=== PATIENT | female | born 1945 | race American Indian/Alaskan Native ===

== ENCOUNTER 2016-09-01 06:47 | Day surgery (SDC) | payer MEDICARE ==
[2016-09-01 08:05] LABS: Eosinophils % (Auto) 4.2 % (0.0-4.3); Hematocrit 35.9 % (30.3-42.9); Hemoglobin 12.3 gm/dl (10.1-14.3); Mean Corpuscular HGB Conc 34 % (30-34); Mean Corpuscular Hemoglobin 33 pg (28-32); Mean Corpuscular Volume 95 fl (79-97); Platelet Count 302 K/mm3 (140-440); Red Blood Count 3.76 M/mm3 (3.65-5.03); Red Cell Distribution Width 14.8 % (13.2-15.2)
[2016-09-01 08:17] LABS: INR 1.28 (0.87-1.13)
[2016-09-01] MEDS ORDERED: VERSED IV ONE ×2 (08:31→08:34)
[2016-09-01] MEDS ORDERED: SUBLIMAZE ONE (08:31)
[2016-09-01] MEDS ORDERED: SUBLIMAZE IV ONE (08:34)
--- NOTE | 2016-09-01 09:58 | Cat Scan Report ---
CT BIOPSY BONE MARROW HISTORY: Monoclonal gammopathy of unknown significance. DESCRIPTION OF PROCEDURE: Informed consent was obtained. Sterile technique was utilized. 1% lidocaine for skin anesthesia. Conscious sedation was accomplished with Versed and fentanyl. The patient was sedated for 20 minutes. Intraobserver time of 20 minutes. Independent cardiorespiratory monitoring by RN. Using CT guidance, a 19-gauge introducer needle was advanced into the right posterior iliac bone. 4 aspirations and one 10-gauge core biopsy were obtained. Pathology was present to handle the samples. No complications. IMPRESSION: Successful CT guided biopsy as described.
[2016-09-01 10:29] LABS: Basophils % (Manual) 0 % (0.0-1.8); Blastocytes % (Manual) 0 %
[2016-09-01 10:32] LABS: Anisocytosis 1+; Diff Status Complete; Platelet Estimate Cons
[2016-09-01 11:19] VITALS: BP 158/83
[2016-09-15 13:51] LABS: CYTOMETRY FIRST MARKER SCANNED INTO MED REC; FLOW CYTOMETRY >16 SCANNED INTO MED REC
== END 2016-09-01 12:00 | disposition home or self-care (01) ==
LOC: OPU 06:47 → EDSTATUS 08:30 → OPU 12:00
DX: D47.2 Monoclonal gammopathy (principal); D70.4 Cyclic neutropenia
CPT/HCPCS: 36415; 38221; 77012; 85007; 85025; 85097; 85610; 88184; 88185; 88230; 88291; 88305; 88311; 88313; G0364; J2250; J3010; 88161